=== PATIENT | male | born 1960 | race Caucasian/White ===

== ENCOUNTER 2018-10-17 20:36 | Observation (INO) | payer OTHER ==
[~2018-10-17] VITALS: Ht 175.3 cm; Wt 115.0 kg
[2018-10-17] MEDS ORDERED: ASPIRIN 81 MG TAB PO STA (20:51)
--- NOTE | 2018-10-17 20:58 | ERD ---
ER Documentation Chief Complaint Chief Complaint CP, SOB X'S 1 DAY HPI During the patient's encounter translation services were utilized Language: Aremenian Source: Family 57-year-old smoker history of hypertension who presents the emergency room with 2-3 days of chest pain that is pressure-like radiating to his left shoulder that is intermittent, usually at rest. He denies any pleuritic pain. Mild associated shortness of breath but no PND, orthopnea or lower extremity swelling. No recent travel, immobilization, calf swelling. Patient has no chest pain currently. No prior cardiac history or workup. ROS All systems reviewed and are negative except as per history of present illness. Medications Home Meds Reported Medications Ibuprofen* (Ibuprofen*) 800 Mg Tablet, 800 MG PO Q6H PRN for PAIN LEVEL 6-10 for 30 Days, #60 10/17/18 Omeprazole* (Omeprazole*) 40 Mg Capsule.dr, 40 MG PO DAILY for 30 Days, #30 10/17/18 Losartan Potassium* (Losartan Potassium*) 50 Mg Tablet, 50 MG PO DAILY for 30 Days, #30 10/17/18 Aspirin* (Aspirin* EC) 81 Mg Tablet.dr, 81 MG PO DAILY for 30 Days, #30 10/17/18 Clarithromycin* (Clarithromycin*) 500 Mg Tablet, 500 MG PO for 14 Days, #28 10/17/18 Amoxicillin* (Amoxicillin*) 500 Mg Cap, 500 MG PO for 14 Days 10/17/18 Allergies Allergies: Coded Allergies: No Known Allergy (Unverified , 10/17/18) FmHx Family History: No diabetes Physical Exam Vitals Vital Signs Date Temp Pulse Resp B/P (MAP) Pulse Ox O2 O2 Flow FiO2 Time Delivery Rate 10/17/18 98.6 108 18 170/81 98 20:38 (110) Physical Exam General: Well developed, well nourished, no acute distress Head: Normocephalic, atraumatic. Eyes: Pupils equally reactive, EOM intact ENT: Moist mucous membranes Neck: Supple, no lymphadenopathy Respiratory: Lungs clear bilaterally, no distress Cardiovascular: RRR, no murmurs, rubs, or gallops Abdominal: Soft, non-tender, non-distended, no peritoneal signs : Deferred MSK: No edema, no unilateral swelling, 5/5 strength Neurologic: Alert and oriented, moving all extremities, normal speech, no focal weakness, no cerebellar signs Skin: No rash Psych: Normal mood Result Diagram: 10/17/18205710/17/182057 Results 24 hrs Laboratory Tests Test 10/17/18 20:58 White Blood Count 11.3 10^3/ul Red Blood Count 4.80 10^6/ul Hemoglobin 14.5 g/dl Hematocrit 43.4 % Mean Corpuscular Volume 90.4 fl Mean Corpuscular Hemoglobin 30.2 pg Mean Corpuscular Hemoglobin Concent 33.4 g/dl Red Cell Distribution Width 13.7 % Platelet Count 362 10^3/UL Mean Platelet Volume 9.5 fl Immature Granulocytes % 0.500 % Neutrophils % 84.0 % Lymphocytes % 11.4 % Monocytes % 3.7 % Eosinophils % 0.2 % Basophils % 0.2 % Nucleated Red Blood Cells % 0.0 /100WBC Immature Granulocytes # 0.060 10^3/ul Neutrophils # 9.5 10^3/ul Lymphocytes # 1.3 10^3/ul Monocytes # 0.4 10^3/ul Eosinophils # 0.0 10^3/ul Basophils # 0.0 10^3/ul Nucleated Red Blood Cells # 0.0 10^3/ul Sodium Level 140 mmol/L Potassium Level 4.6 mmol/L Chloride Level 104 mmol/L Carbon Dioxide Level 24 mmol/L Anion Gap 12 Blood Urea Nitrogen 20 mg/dl Creatinine 0.74 mg/dl Est Glomerular Filtrat Rate mL/min > 60 mL/min Glucose Level 125 mg/dl Calcium Level 9.6 mg/dl Troponin I < 0.012 ng/ml Current Medications Medications Dose Sig/Faith Start Time Status Last (Trade) Ordered Route PRN Stop Time Admin Dose Reason Admin Aspirin 162 mg ONCE STAT 10/17/18 DC 10/17/18 (Aspirin) PO 20:51 10/17/18 21:16 20:52 IV Flush 3 ml PER 10/17/18 UNV (NS 3 ml) PROTOCOL IV 22:30 Ondansetron 4 mg Q6H PRN 10/17/18 UNV HCl (Zofran PO NAUSEA 22:30 Tab) AND/OR VOMITING 650 mg Q6H PRN 10/17/18 UNV Acetaminophen PO PAIN 22:30 (Tylenol LEVEL 1-3 OR Tab) FEVER 1 tab Q6H PRN 10/17/18 UNV Acetaminophen PO PAIN 22:30 / LEVEL 4-6 Hydrocodone Bitart ([place] (5/325)) Docusate 100 mg Q12H PRN 10/17/18 UNV Sodium PO 22:30 (Colace) CONSTIPATION Famotidine 20 mg Q12 PO 10/17/18 UNV (Pepcid) 22:30 Enoxaparin 40 mg DAILY SC 10/18/18 UNV Sodium 09:00 (Lovenox) Procedures/MDM EKG, MONITORS, & DIAGNOSTIC IMAGING: EKG: I reviewed and interpreted a 12-lead EKG. Rhythm: Normal sinus rhythm ST Changes: No contiguous ST segment elevations T waves: No contiguous T wave inversions Impression: [No evidence of acute cardiac ischemia] Repeat EKG: EKG: I reviewed and interpreted a 12-lead EKG. Rhythm: Normal sinus rhythm ST Changes: No contiguous ST segment elevations T waves: No contiguous T wave inversions Impression: [No evidence of acute cardiac ischemia] Chest x-ray: I reviewed and interpreted a 1 view of the chest Mediastinum: No enlargement Cardiac silhouette: No cardiomegaly Airspace: Clear lung ly bilaterally without evidence of pneumothorax Bones: No evidence of fracture PROCEDURES: [None] LAB INTERPRETATION: * Negative troponin MEDICAL DECISION MAKING: The patient's history, physical exam and clinical presentation is concerning for possible cardiogenic etiology and acute coronary syndrome. Based on the patient's clinical exam and history and risk factors, I have a much lower clinical concern for pulmonary embolism, acute aortic dissection, pneumothorax, pneumonia, cardiac tamponade HEART Score: 4 MACE Rate: Upwards of 16.6% Shared Decision Making: We had a conversation regarding risk stratification, MACE rate, and the risks, benefits, alternatives of disposition planning options. Disposition planning: Inpatient hospitalization ER COURSE: * No chest pain, aspirin provided CONSULTATION: [None] DISPOSITION PLAN: Telemetry admission for management of chest pain to rule out acute coronary syndrome, serial enzymes, risk stratification and consideration of provocative testing CONSULTATION: Accepting care team and consultations: I discussed the current laboratory data, diagnostic imaging and emergency care provided. Admitting team: Dr. Salazar Admitting team indication: Insurance directed Departure Diagnosis: Primary Impression: Chest pain Chest pain type: unspecified Qualified Codes: R07.9 - Chest pain, unspecified Condition: Stable DEISY CALDERON MD Oct 17, 2018 20:58
[2018-10-17] MEDS ORDERED: HYDROCODONE/APAP (5/325) TAB PO PRN (22:30)
[2018-10-17] MEDS ORDERED: ACETAMINOPHEN 325 MG TAB PO PRN (22:30)
[2018-10-17] MEDS ORDERED: DOCUSATE SODIUM 100 MG CAP PO PRN (22:30)
[2018-10-17] MEDS ORDERED: NACL 0.9% 3 ML SYG IV SCH (22:30)
[2018-10-17] MEDS ORDERED: ONDANSETRON 4 MG TAB PO PRN (22:30)
[2018-10-17] MEDS ORDERED: OMEP40CA6 PO (22:56)
[2018-10-17] MEDS ORDERED: CLAR500T PO (22:56)
[2018-10-17] MEDS ORDERED: ASPI-817 PO (22:56)
[2018-10-17] MEDS ORDERED: LOSA50TA14 PO (22:56)
[2018-10-17] MEDS ORDERED: AMOX500C2 PO (22:56)
[2018-10-17] MEDS ORDERED: IBUP-1544 PO (22:56)
[2018-10-18] VITALS (9 sets, daily range): BP systolic 107–133; BP diastolic 69–76; PULSE 75–98; RESP 2–22; Ht 175.3 cm; Wt 115.0 kg
[2018-10-18] MEDS: FAMOTIDINE 20 MG TAB PO SCH ×2 (00:19→09:41)
[2018-10-18] MEDS ORDERED: ENOXAPARIN 40 MG/0.4 ML SYG SC SCH (09:00)
[2018-10-18] MEDS ORDERED: ATOR40TA68 NGT (11:31)
--- NOTE | 2018-10-18 12:46 | HP ---
DATE OF ADMISSION: 10/17/2018 CHIEF COMPLAINT: Chest pain and shortness of breath. HISTORY OF PRESENT ILLNESS: A 57-year-old obese male with a long history of tobacco use, presented t o ER with complaint of on and off left-sided chest pressure x3 to 4 days. This had been associated w ith shortness of breath, nausea and vomiting. The pressure lasted about 5 to 10 minutes, but it is n ot related to exertion. He denies any previous history of chest pain. There is no history of hypert ension or diabetes mellitus. Initial evaluation in the emergency room was unremarkable. Serial trop onins have been negative. The patient is of chest pain at the time of my visit. PHYSICAL EXAMINATION: GENERAL: Well-developed, well-nourished, obese male who is in no apparent distress. VITAL SIGNS: Stable. He is afebrile. HEENT: Extraocular muscles are intact. Pupils are equal, reactive to light bilaterally. Sclerae ar e anicteric. Oropharynx is clear, moist. NECK: Supple. No JVD, no carotid bruits. LUNGS: Clear to auscultation bilaterally. CARDIAC: Regular rate and rhythm. No murmurs, rubs or gallops. ABDOMEN: Soft, nontender, nondistended. Normoactive bowel sounds. EXTREMITIES: No clubbing, cyanosis or edema. NEUROLOGICAL: Nonfocal. LABORATORY DATA: Sodium 139, potassium 4.2, chloride 105, bicarb 23, BUN 19, creatinine 0.54, calciu m is 9.4. Cholesterol is elevated at 257, LDL 202, HDL 331. ASSESSMENT: 1. A 57-year-old male presenting with acute chest pain. 2. Rule out acute coronary syndrome. 3. Chronic smoker. PLAN: 1. Place in telemetry observation. 2. Review 2D echo. 3. Start Lipitor. 4. Stress Cardiolite imaging. 5. Cardiology consultation was requested. Dr. Wong was contacted. Dictated By: LON JENSEN/BEE Conf#: [id number] DID#: [id number] CC: ERIN ONTIVEROS MD;*EndCC*
[2018-10-18] MEDS ORDERED: REGADENOSON 0.4 MG/5 ML SYG ONE (12:53)
--- NOTE | 2018-10-18 13:28 | RADRPT ---
Echocardiogram Report Patient Name: JUAN PABLO VILLALOBOS Gender: Male Date: 1960 Study Date: 18-Oct-2018 Chip Bin Operator: Luis Skinner [facility] Location: [address] Ref. Physician: ERIN ONTIVEROS Quality: Adequate Procedures: Transthoracic echocardiogram with complete 2D, M-Mode, and doppler examination. Indications: Chest Pain. 2D/M Mode Doppler Measurement Value Normal Ranges Measurement Value Normal Ranges LVIDd 2D 3.6 3.5 - 5.6 cm AV Peak Reynaldo 1.7 m/sec LVIDs 2D 2.7 2.1 - 4.1 cm AV Peak PG 11.0 mmHg FS 2D 27.0 % AI Peak PG 75.0 mmHg LVPWd 2D 1.4 0.6 - 1.1 cm AI Peak Reynaldo 4.3 m/sec IVSd 2D 1.2 0.6 - 1.1 cm AI PHT 402.0 msec IVS/LVPW 2D 0.8 LVOT Peak Reynaldo 1.2 m/sec AoR Diam 2D 3.2 2.0 - 3.7 cm LVOT Peak PG 6.0 mmHg LA/Ao 2D 1 0 - 1 MV E Peak Reynaldo 0.7 m/sec EDV 2D 47.8 cm3 MV A Peak Reynaldo 0.8 m/sec ESV 2D 18.6 cm3 MV E/A 0.8 LA Dimen 2D 2.6 2.3 - 4.0 cm MV Decel Time 158 msec MV E/A 0.8 TR Peak Reynaldo 2.4 m/sec TR Peak PG 23.0 mmHg RVSP 26.0 mmHg RA Pressure 3.0 Findings Left Ventricle: Normal left ventricular systolic function. Normal left ventricular cavity size. Mild concentric left ventricular hypertrophy. Ejection fraction is visually estimated at 55 %. Tissue Doppler/Mitral Doppler indices are consistent with impaired relaxation (Stage I diastolic dysfunction). Right Ventricle: Normal right ventricular size. Normal right ventricular systolic function. Left Atrium: The left atrium is normal in size. Right Atrium: The right atrium is normal in size. Mitral Valve: Normal appearance and function of the mitral valve with trace physiologic regurgitation. Aortic Valve: No hemodynamically significant aortic stenosis by doppler. Aortic cusps appear mildly calcified. Mild to moderate aortic valve regurgitation. Tricuspid Valve: Normal appearance of the tricuspid valve. Estimated peak PA systolic pressure 26 mmHg. There is trace tricuspid regurgitation. Pulmonic Valve: Pulmonic valve not well visualized. Pericardium: Normal pericardium with no significant pericardial effusion. Aorta: Normal aortic root. IVC: Normal size and normal respiratory collapse consistent with normal right atrial pressure. Conclusions Normal left ventricular systolic function. Normal left ventricular cavity size. Mild concentric left ventricular hypertrophy. Ejection fraction is visually estimated at 55 %. Tissue Doppler/Mitral Doppler indices are consistent with impaired relaxation (Stage I diastolic dysfunction). Normal appearance and function of the mitral valve with trace physiologic regurgitation. No hemodynamically significant aortic stenosis by doppler. Aortic cusps appear mildly calcified. Mild to moderate aortic valve regurgitation. Normal appearance of the tricuspid valve. Estimated peak PA systolic pressure 26 mmHg. There is trace tricuspid regurgitation. Electronically Signed By: James Wong 18-Oct-2018 13:28:20 -0800 Patient Name: JUAN PABLO VILLALOBOS Study Date: 18-Oct-2018 [id number]
[2018-10-18] MEDS ORDERED: NITROGLYCERIN (SL) 0.4 MG TAB SL PRN (13:30)
--- NOTE | 2018-10-18 13:55 | CONS ---
DATE OF ADMISSION: 10/17/2018 DATE OF CONSULTATION: 10/18/2018 TYPE OF CONSULTATION: Cardiology. REASON FOR CONSULTATION: Chest pain, assess for acute coronary syndrome. REQUESTING PHYSICIAN: Johnathon Baca MD HISTORY OF PRESENT ILLNESS: Mr. Thompson is a 57-year-old male with a history of hypertension, who presented with approximately 3 days of substernal chest pain, pressure-like pushing on his chest, radiating to his left shoulder occurring at rest. The patient does have some mild shortness of breath. Upon arrival, temperature was 98.6, blood pressure 170/81, pulse 108, respiratory rate 18, satting 98%. The patient's labs revealed white blood cell count of 11.3, hemoglobin 14.5, platelet count 362, sodium of 140, potassium 4.6, creatinine 0.74, BUN 20, troponin negative. D-dimer 1624. The patient's chest x-ray revealed subsegmental atelectasis in left lung base; otherwise clear lungs. The patient's electrocardiogram had revealed sinus tachycardia at 101, normal axis, normal intervals with nonspecific ST abnormalities. The patient was subsequently admitted to the floor and since admit to the floor, has had a total of 3 negative troponins, ruling out acute myocardial infarction. He has an LDL return at 202 and HDL of 31. TSH is suppressed at 0.267. The patient denies ongoing chest pain. PAST MEDICAL HISTORY: As above in HPI. MEDICATIONS CURRENTLY IN HOSPITAL: 1. Lipitor now started on 40 mg at bedtime. 3. Zofran p.r.n. 4. Tylenol p.r.n. 5. Jackson p.r.n. 6. Colace p.r.n. 7. Pepcid. ALLERGIES: NO KNOWN DRUG ALLERGIES. SOCIAL HISTORY: Positive tobacco, social EtOH, no illicit drug use. FAMILY HISTORY: No history of sudden cardiac or early CAD. REVIEW OF SYSTEMS: As above in HPI. CONSTITUTIONAL: No fevers, chills. PULMONARY: No current shortness of breath. CARDIOVASCULAR: Intermittent chest pain. GASTROINTESTINAL: No vomiting. GENITOURINARY: No hematuria. MUSCULOSKELETAL: Degenerative joint disease. PSYCHIATRIC: The patient denies depression. NEUROLOGIC: No documented history of CVA. ENDOCRINE: No documented history of diabetes mellitus. PHYSICAL EXAMINATION: VITAL SIGNS: Temperature of 98.7, blood pressure most recently of 160/72, pulse 93, respiratory rate 18, satting 96%. GENERAL: The patient is alert, awake, in no acute distress. NECK: JVP is approximately 8 to 9 cm of water. CHEST: Fair air movement throughout. HEART: Regular rate and rhythm. Normal S1, S2, I/ systolic murmur, nondisplaced PMI. ABDOMEN: Positive bowel sounds, soft. EXTREMITIES: No significant pitting edema, 1+ pulses bilateral posterior tibial. LABORATORY DATA: Most recently from today, sodium 139, potassium 4.2, creatinine 0.5, BUN 19. LDL of 202, HDL of 31. TSH is suppressed 0.267. White blood cell count 11.2, hemoglobin 14.1, platelet count 334. IMAGING STUDIES: As above in HPI. No further imaging studies for my review at this time. ELECTROCARDIOGRAM: As above in HPI. No further electrocardiogram for my review at this time. IMPRESSION: 1. Chest pain, assess for acute coronary syndrome with negative troponins x3 at this time. 2. Abnormal electrocardiogram, assess for acute coronary syndrome, nonspecific ST-T abnormalities. 3. Hypertension. 4. Dyslipidemia with significantly elevated LDL, newly found on this admission. 5. Ongoing tobacco usage. 6. Leukocytosis, mild. RECOMMENDATIONS: 1. At this time, we would maintain the patient on telemetry monitoring to follow rhythm and rate control closely. 2. Give patient sublingual nitroglycerins for any recurrent episodes of chest pain. 3. We would place patient on aspirin for prophylaxis against cardiovascular events. 4. I agree with initiation of statin therapy for treatment of significant elevated LDL and primary prevention. 5. We will check a 2D echo for this patient's ejection fraction, wall motion, any major valve abnormalities. The patient then is for cardiac stress test today in order to assess the possibility of significant obstructive coronary artery lending to symptoms of chest pain and subsequently admit to the hospital. 6. Smoking cessation. Thank you for allowing me to take part in the care of this patient. I will continue to follow him very closely with you with further recommendations to be made as the patient progresses through his inpatient hospital clinical course. Dictated By: DAWIT DELGADO/BEE Conf#: [id number] DID#: [id number] CC: ERIN ONTIVEROS MD; JOHNATHON BACA MD;*[facility]* [facility]
--- NOTE | 2018-10-18 13:59 | CARRPT ---
DATE OF PROCEDURE: 10/18/2018 TYPE OF PROCEDURE: Lexiscan Cardiolite stress test, electrocardiogram portion. REASON FOR STRESS TESTING: Chest pain, assess for ischemia. BASELINE VITAL SIGNS AND ELECTROCARDIOGRAM: Pulse 75, blood pressure 120/75. Electrocardiogram was normal sinus rhythm, rate of 75, normal axis, normal intervals, isolated T flattening in lead aVL. DESCRIPTION OF PROCEDURE: The patient underwent standard Lexiscan infusion protocol over 10 seconds followed by radiolabeled tracer. The patient has stopped due to completion of protocol. Maximal ach ieved blood pressure during the test was 135/72. Maximum heart rate during the test was 97. ELECTROCARDIOGRAM FINDINGS: 1. The patient did not develop any new Lexiscan-induced ST or T-wave changes from baseline abnormali ties that are diagnostic of cardiac ischemia. 2. Complaints of shortness of breath during stress test that resolved in recovery. No chest pain. 3. No documented premature ventricular contractions during stress testing. 4. Report of nuclear images to follow in separate dictation. Dictated By: DAWIT DELGADO/BEE Conf#: [id number] DID#: [id number] CC: ERIN ONTIVEROS MD; LON BACA MD;*EndCC*
[2018-10-18] MEDS ORDERED: ATORVASTATIN 40 MG TAB NGT SCH (21:00)
[2018-10-19] MEDS ORDERED: ASPIRIN 81 MG TAB PO SCH (09:00)
--- NOTE | 2018-10-19 14:16 | DS ---
DATE OF ADMISSION: 10/17/2018 DATE OF DISCHARGE: 10/18/2018 DISCHARGE DIAGNOSES: 1. A 57-year-old male with atypical chest pain. 2. Chronic smoker. 3. Hyperlipidemia. 4. Normal Lexiscan stress test. HOSPITAL COURSE: A 57-year-old obese male with long history of tobacco use, presented to the emergen cy room with complaint of on and off left-sided chest pressure for a few days. Acute CT was ruled ou t. The patient was seen in consultation by Dr. Wong. He underwent 2D echo and stress Cardiolite imaging. There was no evidence of coronary ischemia. Laboratory tests showed cholesterol of 257, LD L of 202, HDL of 31. I started him on Lipitor. He was asked to continue his previous home medicatio ns. The patient was strongly advised to avoid smoking due to his other associated risk factors. He was discharged home in a stable condition. Arrangement was made for followup with PCP. Dictated By: LON BACA MD SK/NTS Conf#: [id number] DID#: [id number] CC: ERIN ONTIVEROS MD; DAWIT WONG MD;*EndCC*
== END 2018-10-18 17:05 | disposition home or self-care (01) ==
LOC: E/R 20:36 → 6WM 22:37
PROVIDERS: ADMIT Internal Medicine; ATTEND Internal Medicine
DX: R07.89 Other chest pain (principal); E78.5 Hyperlipidemia, unspecified; F17.200 Nicotine dependence, unspecified, uncomplicated
CPT/HCPCS: 36415; 71045; 78452; 80048; 80061; 82550; 82553; 83036; 84439; 84443; 84484; 85025; 85378; 93005; 93017; 93306; A9500; A9505; J1650; J2785; Z7500; Z7502; Z7610; G0378